=== PATIENT | male | born 1995 | race Caucasian/White ===

== ENCOUNTER 2017-10-01 11:19 | Emergency (ER) | payer OTHER ==
[~2017-10-01] VITALS: Ht 175.3 cm; Wt 79.5 kg
[~2017-10-01 11:19] MED LIST: NOCURR
[2017-10-01] MEDS ORDERED: HYDROCODONE/ACETAMINOPHEN 5-325 MG TABLET PO ONE (12:45)
[2017-10-01] MEDS ORDERED: PERTUSS(ACELL),DIPH,TET VAC/PF 0.5 ML VIAL IM ONE (12:45)
[2017-10-01 15:46] VITALS: BP 133/77
== END 2017-10-01 16:30 | disposition home or self-care (01) ==
LOC: EMS 11:20
DX: S82.51XA Displaced fracture of medial malleolus of right tibia, initial encounter for closed fracture (principal); S50.812A Abrasion of left forearm, initial encounter; S40.211A Abrasion of right shoulder, initial encounter; V29.9XXA Motorcycle rider (driver) (passenger) injured in unspecified traffic accident, initial encounter; Y93.89 Activity, other specified; Y92.828 Other wilderness area as the place of occurrence of the external cause; Y99.8 Other external cause status
CPT/HCPCS: 29515; 73503; 90471; 90715; 99284

== ENCOUNTER 2021-07-02 23:53 | Emergency (ER) | payer OTHER | END 2021-07-03 01:45 | disposition left against medical advice (07) | LOC: EMS 23:56 | DX: Z48.02 Encounter for removal of sutures (principal); Z53.21 Procedure and treatment not carried out due to patient leaving prior to being seen by health care provider ==